=== PATIENT | female | born 1980 | race Caucasian/White ===

== ENCOUNTER 2016-10-04 21:34 | Emergency (ER) | payer BC ==
[~2016-10-04] VITALS: Ht 162.6 cm; Wt 81.6 kg
[~2016-10-04 21:34] MED LIST: LEVO175T2 PO
--- NOTE | 2016-10-04 21:35 | NUR ---
Patient to ER bed 6 to gown for evaluation. Side rails up. Report given to Pham CORONEL.
[2016-10-04 21:40] VITALS: BP 107/69; PULSE 77; RESP 18; TEMP 97.1; O2SAT 100
--- NOTE | 2016-10-04 21:48 | NUR ---
Patient to ER C/O spider bite. Patient states that she was getting dressend and got bit by a spider on upper inner right thigh. Patient states that she did not see the type of spider but immediately after had reddness and itchiness. Mild induration, errythema surrounding the area 2-3 cm. AAOx4, unlabored breathing, no signs of acute distress.
--- NOTE | 2016-10-04 22:03 | NUR ---
ER NIXON Villanueva at bedside for evaluation
[2016-10-04] MEDS ORDERED: IBUPROFEN 600 MG TABLET PO ONE (22:15)
[2016-10-04] MEDS ORDERED: DIPHENHYDRAMINE HCL 50 MG CAPSULE PO ONE (22:15)
[2016-10-04] MEDS ORDERED: BACITRACIN 1 GM OINT TP ONE (22:15)
--- NOTE | 2016-10-04 22:17 | NUR ---
ER MD Ruiz at bedside discussing plan of care with patient
[2016-10-04 22:39] VITALS: BP 116/72; PULSE 74; RESP 17; TEMP 98; O2SAT 99
--- NOTE | 2016-10-04 22:39 | NUR ---
Patient given written and verbal discharge instructions and verbalizes understanding. ER DIRECTOR OF [employer]NER MARKETING Kay discussed with patient the results and treatment provided. Patient in stable condition. ID arm band removed. Rx of benadryl & motrin given. Patient educated on pain management and to follow up with PMD. Pain Scale 0/10. Opportunity for questions provided and answered.
== END 2016-10-04 22:39 | disposition home or self-care (01) ==
LOC: SED 21:34
DX: S70.361A Insect bite (nonvenomous), right thigh, initial encounter (principal); E11.8 Type 2 diabetes mellitus with unspecified complications; W57.XXXA Bitten or stung by nonvenomous insect and other nonvenomous arthropods, initial encounter; Y93.89 Activity, other specified; Y99.8 Other external cause status; Y92.89 Other specified places as the place of occurrence of the external cause
CPT/HCPCS: 99284; Q0163

== ENCOUNTER 2018-03-21 11:17 | Inpatient (IN) | payer BC ==
[~2018-03-21] VITALS: Ht 162.6 cm; Wt 76.7 kg
--- NOTE | 2018-03-21 11:30 | NUR ---
Pt placed in bed 7
[2018-03-21 11:36] VITALS: BP_SYST 102
--- NOTE | 2018-03-21 12:02 | NUR ---
Dr. Mcclendon at bedside for evaluation
[2018-03-21] MEDS ORDERED: NACL 0.9% 1,000 ML IV ONE (12:05)
[2018-03-21] MEDS ORDERED: ONDANSETRON HCL 4 MG/2 ML VIAL IVP ONE ×2 (12:15→21:15)
--- NOTE | 2018-03-21 12:16 | NUR ---
Pt c/o body aches, dizziness, diarrhea, upper abd pain, nausea & weakness today. States that she had an ear ache and sore throat a few days ago. Denies fevers
--- NOTE | 2018-03-21 12:30 | NUR ---
Medicated per MD orders. IVF infusing with no s/s of infiltration at this time. Will cont to monitor. at bedside, bed in lowest position, side rails up. Lights turned off for comfort.
[2018-03-21 13:10] LABS: BASOPHILS # (AUTO) 0.1 K/uL (0.0-0.2); EOSINOPHILS # (AUTO) 0.1 K/uL (0.0-0.4); EOSINOPHILS % (AUTO) 0.4 % (0.0-4.0)
[2018-03-21 13:29] LABS: BASOPHILS % (AUTO) 0.4 % (0.0-2.0); HEMATOCRIT 48.3 % (36-48); HEMOGLOBIN 16.7 g/dL (12.0-16.0); LYMPHOCYTES # (AUTO) 1.6 K/uL (1.0-5.5); LYMPHOCYTES % (AUTO) 9.6 % (20.5-51.5); MEAN CORPUSCULAR HEMOGLOBIN 32 pg (27-31); MEAN CORPUSCULAR HGB CONC 35 % (32-36); MEAN CORPUSCULAR VOLUME 92 fL (79.0-98.0); MONOCYTES # (AUTO) 0.6 K/uL (0.0-1.0); MONOCYTES % (AUTO) 3.8 % (1.7-9.3); NEUTROPHILS # (AUTO) 14.7 K/uL (1.8-7.7); NEUTROPHILS % (AUTO) 85.8 % (40.0-70.0); PLATELET COUNT (AUTO) 322 K/uL (130-430); RED BLOOD CELL COUNT(AUTO) 5.28 MIL/uL (4.2-6.2); RED CELL DISTRIBUTION WIDTH 11.9 % (9.0-15.0); WHITE BLOOD COUNT (AUTO) 17.1 K/uL (4.8-10.8)
--- NOTE | 2018-03-21 13:30 | NUR ---
Pt resting on gurney, no signs of distress, will continue to monitor.
[2018-03-21 13:35] LABS: CALCIUM 9.1 mg/dL (8.4-11.0); CREATININE 0.84 mg/dL (0.55-1.30); POTASSIUM 3.3 mmol/L (3.5-5.1)
[2018-03-21 13:39] LABS: ALBUMIN 2.9 g/dL (3.4-4.8); TOTAL BILIRUBIN 0.3 mg/dL (0.0-1.0)
[2018-03-21 13:49] LABS: BILIRUBIN,URINE NEGATIVE (NEGATIVE); BLOOD, URINE NEGATIVE (NEGATIVE); CLARITY/URINE CLEAR (CLEAR); COLOR,URINE YELLOW (YELLOW); GLUCOSE,URINE NEGATIVE (NEGATIVE); KETONES,URINE 1+ (NEGATIVE); LEUKOCYTE ESTERASE ,URINE NEGATIVE (NEGATIVE); NITRITE, URINE NEGATIVE (NEGATIVE); PROTEIN URINE NEGATIVE (NEGATIVE); UROBILINOGEN,URINE 0.2 (0.2-1.0)
--- NOTE | 2018-03-21 14:35 | NUR ---
Dr. Mcclendon at bedside speaking to pt and family discussing lab and diagnostic results.
--- NOTE | 2018-03-21 15:31 | NUR ---
Pt moved to [facility].
--- NOTE | 2018-03-21 16:38 | NUR ---
Dr. Mcclendon at bedside speaking to pt discussing lab and diagnostic results.
--- NOTE | 2018-03-21 16:40 | NUR ---
Patient given written and verbal discharge instructions and verbalizes understanding. ER MD discussed with patient the results and treatment provided. Patient in stable condition. ID arm band removed. IV catheter removed intact and dressing applied, no active bleeding. Rx of Motrin & Augmentin given. Patient educated on pain management and to follow up with PMD. Pain Scale 0/10. Opportunity for questions provided and answered. Medication side effect fact sheet provided.
--- NOTE | 2018-03-21 17:15 | NUR ---
Pt contacted as requested by Dr. Mcclendon, pt asked to return to ER for further testing. Pt agreed and states that she will return to [facility] ER.
--- NOTE | 2018-03-21 18:10 | NUR ---
Pt returned to ER, placed in ER bed 2.
[2018-03-21] MEDS ORDERED: PIPERACILLIN/TAZO 3.38 GM in NS 50 ML IV ONE (18:30)
--- NOTE | 2018-03-21 18:30 | NUR ---
# 20 gauge angiocath placed to LAC. Use of asceptic technique. Opsite placed over site. Blood return noted. Blood for lab drawn from site. Flushed with 10 cc of normal saline. No evidence of infiltration noted. Patient tolerated well.
[2018-03-21] MEDS ORDERED: DIATR MEGLU/DIATRIZ SOD 30 ML SOLUTION PO ONE (18:33)
[2018-03-21] MEDS ORDERED: PIPERACILLIN/TAZOBACTAM 3.375 GM/VIAL (ZOSYN) IV ONE (18:37)
[2018-03-21 18:46] LABS: BASOPHILS # (AUTO) 0.1 K/uL (0.0-0.2); BASOPHILS % (AUTO) 0.7 % (0.0-2.0); EOSINOPHILS % (AUTO) 0.3 % (0.0-4.0); HEMATOCRIT 45.1 % (36-48); HEMOGLOBIN 15.2 g/dL (12.0-16.0); LYMPHOCYTES # (AUTO) 2.2 K/uL (1.0-5.5); LYMPHOCYTES % (AUTO) 20.7 % (20.5-51.5); MEAN CORPUSCULAR HEMOGLOBIN 30 pg (27-31); MEAN CORPUSCULAR HGB CONC 34 % (32-36); MEAN CORPUSCULAR VOLUME 90 fL (79.0-98.0); MONOCYTES # (AUTO) 0.4 K/uL (0.0-1.0); NEUTROPHILS % (AUTO) 74.3 % (40.0-70.0); PLATELET COUNT (AUTO) 337 K/uL (130-430); RED BLOOD CELL COUNT(AUTO) 5.02 MIL/uL (4.2-6.2); RED CELL DISTRIBUTION WIDTH 12.1 % (9.0-15.0); WHITE BLOOD COUNT (AUTO) 10.7 K/uL (4.8-10.8)
--- NOTE | 2018-03-21 18:50 | NUR ---
CT consent form signed. Dr. Mcclendon made aware of pt's allergy to walnuts and that pt takes Metformin.
[2018-03-21 19:02] LABS: CALCIUM 9.4 mg/dL (8.4-11.0); CREATININE 0.75 mg/dL (0.55-1.30); POTASSIUM 3.8 mmol/L (3.5-5.1)
[2018-03-21 19:07] LABS: ALBUMIN 3.2 g/dL (3.4-4.8); TOTAL BILIRUBIN 0.4 mg/dL (0.0-1.0)
--- NOTE | 2018-03-21 19:15 | NUR ---
Pt had signed for contrast. aware of CT with contrast. In bed. Pt level of 3/10 tolerable pain level.
[2018-03-21] MEDS ORDERED: IOHEXOL 100 ML IV ONE (20:06)
--- NOTE | 2018-03-21 20:15 | NUR ---
ER at bedside examining patient.
--- NOTE | 2018-03-21 20:18 | NUR ---
pt was taken to CT via wheel chair
--- NOTE | 2018-03-21 20:27 | NUR ---
Pt in bed 2.
--- NOTE | 2018-03-21 21:05 | NUR ---
Pt complained of nausea.
--- NOTE | 2018-03-21 21:48 | NUR ---
Medication reconciliation completed with information provided by -verbal from patient. Any prior medication reconciliation on file was reviewed and corrected.
[2018-03-21] MEDS ORDERED: INSULIN REGULAR, HUMAN 100 UNITS/ML, 10 ML VIAL (novoLIN R) SUBCUT PRN (22:00)
--- NOTE | 2018-03-21 22:30 | NUR ---
Patient will be admitted to care of Dr. Tavera. Admitted to Tele unit. was trafferrd to room 135. Belongings list completed. Summary report printed. Report was given at bedside to michelet CORONEL.
--- NOTE | 2018-03-21 22:32 | NUR ---
ADMISSION NOTE Received patient from ER via jaye, received report from HOMER rajan. Patient admitted with diagnosis of gastroparesis. Patient oriented to hospital routine, call light, toileting and safety-patient verbalized understanding.
[2018-03-21 22:37] VITALS: BP_SYST 118
[2018-03-21] MEDS ORDERED: GLU500 PO (22:48)
[2018-03-21] MEDS ORDERED: cefTRIAXone 1 GM in D5W 50 ML IV SCH (23:00)
--- NOTE | 2018-03-21 23:00 | NUR ---
Rec'd report from [facility]. Pt resting in bed awake, alert, oriented x4. Breathing unlabored and even on room air. at the bedside. No signs of distress, no needs at this time. Fall and safety precautions in place. Bed in lowest position, brake on, alarm on, call light within reach. Will continue to monitor and carry out orders.
[2018-03-21] MEDS ORDERED: cefTRIAXone 1 GM VIAL ONE (23:13)
[2018-03-21] MEDS: NACL 0.9% 1,000 ML IV SCH (23:14)
--- NOTE | 2018-03-21 23:29 | NUR ---
IV abx hung
--- NOTE | 2018-03-22 01:46 | NUR ---
Pt resting in bed awake, alert, oriented x4. Breathing unlabored and even on room air. at the bedside. No signs of distress, no needs at this time. Fall and safety precautions in place. IVF infusing as ordered. Bed in lowest position, brake on, alarm on, call light within reach. Will continue to monitor.
--- NOTE | 2018-03-22 03:54 | NUR ---
Pt resting in bed with eyes closed. Breathing unlabored and even on room air. at the bedside. No signs of distress, no needs at this time. Fall and safety precautions in place. IVF infusing as ordered. Bed in lowest position, brake on, alarm on, call light within reach. Will continue to monitor.
[2018-03-22] MEDS ORDERED: LEVOTHYROXINE SODIUM 0.125 MG TABLET PO SCH (06:00)
--- NOTE | 2018-03-22 06:20 | NUR ---
Blood sugar 178. Administered 2 units of regular insulin SQ as ordered
--- NOTE | 2018-03-22 07:20 | NUR ---
Opening Note: Patient laying in bed resting. Patient denies pain and discomfort. Patient denies nausea and vomiting. Breathing is even and unlabored with no distress noted. IV patent and intact running IV fluids per MD order. Safety precautions in place; bed in lowest position, wheels locked, side rails x3, bed alarm activated and call light within reach. Will continue to monitor.
--- NOTE | 2018-03-22 07:42 | NUR ---
CLOSING NOTE Gave report to Ping day shift nurse. Pt resting in bed awake, alert, oriented x4. Breathing unlabored and even on room air. No signs of distress, no needs at this time. All needs met throughout shift. Fall and safety precautions in place throughout shift. IVF infusing as ordered. Bed in lowest position, brake on, alarm on, call light within reach.
[2018-03-22 07:51] LABS: CALCIUM 8.4 mg/dL (8.4-11.0); CREATININE 0.89 mg/dL (0.55-1.30); POTASSIUM 3.7 mmol/L (3.5-5.1)
[2018-03-22] MEDS: NACL 0.9% 1,000 ML IV SCH ×2 (07:55→17:23)
--- NOTE | 2018-03-22 07:56 | NUR ---
Bed Alarm: Patient asked for bed alarm to be taken off, patient stated she feels more stable and feels weird about having a bed alarm. Patient asked to use call light to call for nurse when getting out of bed. Patient verbalized understanding.
[2018-03-22 08:01] VITALS: BP_SYST 95
[2018-03-22 08:01] LABS: BASOPHILS # (AUTO) 0.1 K/uL (0.0-0.2); BASOPHILS % (AUTO) 0.8 % (0.0-2.0); EOSINOPHILS # (AUTO) 0.2 K/uL (0.0-0.4); EOSINOPHILS % (AUTO) 2.3 % (0.0-4.0); HEMATOCRIT 36.2 % (36-48); HEMOGLOBIN 12.7 g/dL (12.0-16.0); LYMPHOCYTES # (AUTO) 2.4 K/uL (1.0-5.5); LYMPHOCYTES % (AUTO) 29.6 % (20.5-51.5); MEAN CORPUSCULAR HEMOGLOBIN 32 pg (27-31); MEAN CORPUSCULAR HGB CONC 35 % (32-36); MEAN CORPUSCULAR VOLUME 91 fL (79.0-98.0); MONOCYTES # (AUTO) 0.7 K/uL (0.0-1.0); MONOCYTES % (AUTO) 8.5 % (1.7-9.3); NEUTROPHILS # (AUTO) 4.7 K/uL (1.8-7.7); NEUTROPHILS % (AUTO) 58.8 % (40.0-70.0); PLATELET COUNT (AUTO) 277 K/uL (130-430); RED CELL DISTRIBUTION WIDTH 12.2 % (9.0-15.0); WHITE BLOOD COUNT (AUTO) 8.1 K/uL (4.8-10.8)
[2018-03-22] MEDS ORDERED: DOCUSATE SODIUM 100 MG CAPSULE PO PRN (09:15)
[2018-03-22] MEDS ORDERED: MAGNESIUM SULFATE 50 ML IV PRN (09:15)
[2018-03-22] MEDS ORDERED: ZOLPIDEM TARTRATE 5 MG TABLET PO PRN (09:15)
[2018-03-22] MEDS ORDERED: LORazepam 2 MG/ML VIAL IVP PRN (09:15)
[2018-03-22] MEDS ORDERED: MUPIROCIN 2% TOPICAL OINTMENT 22 GM NS PRN (09:15)
[2018-03-22] MEDS ORDERED: ONDANSETRON HCL 4 MG/2 ML VIAL IVP PRN (09:15)
[2018-03-22] MEDS ORDERED: POTASSIUM CHLORIDE 20 MEQ TAB.PRT.SR PO PRN (09:15)
[2018-03-22] MEDS ORDERED: ACETAMINOPHEN 325 MG TABLET PO PRN (09:15)
[2018-03-22] MEDS ORDERED: MORPHINE 2 MG/ML INJ. SYRINGE IVP PRN ×2 (09:15)
--- NOTE | 2018-03-22 09:17 | NUR ---
Nutrition Update Robby Scale 18 noted. Pt admitted for gastroparesis. Diet: [facility] BMI: 29 kg/m2 RD to follow per nutrition care standards.
[2018-03-22] MEDS ORDERED: metFORMIN HCL 500 MG TABLET PO ONE (09:30)
[2018-03-22] MEDS ORDERED: METOCLOPRAMIDE HCL 10 MG/2 ML VIAL IVP PRN (09:30)
[2018-03-22] MEDS ORDERED: DEXTROSE 50% JECT 50 ML DISP.SYRIN IVP PRN (09:30)
--- NOTE | 2018-03-22 09:55 | NUR ---
Rounding: Patient laying in bed resting, no distress noted. Will continue to monitor.
[2018-03-22 09:58] LABS: INR 0.9 (0.8-1.2); PROTHROMBIN TIME 9.4 SECS (9.5-12.5)
[2018-03-22 10:11] LABS: BARBITURATE, URINE NEGATIVE (NEG <=200); BENZODIAZEPINE, URINE NEGATIVE (NEG <=150); CANNABINOID, URINE NEGATIVE (NEG <=50); COCAINE, URINE NEGATIVE (NEG <=150); METHAMPHETAMINES SCREEN,URINE NEGATIVE (NEG <=500); OPIATE, URINE NEGATIVE (NEG <=100); PHENCYCLIDINE SCREEN,URINE NEGATIVE (NEG <=25); UR TRICYCLIC ANTIDEPRESSANTS NEGATIVE (NEG <=300); URINE AMPHETAMINE NEGATIVE (NEG <=500); URINE METHADONE NEGATIVE (NEG <=200); URINE OXYCODONE SCREEN NEGATIVE (NEG <=100); URINE PROPOXYPHENE SCREEN NEGATIVE (NEG <=300)
[2018-03-22 10:13] LABS: HCG,QUAL RESULT NEGATIVE (NEGATIVE)
[2018-03-22] MEDS ORDERED: LACTOBACILLUS RHAMNOSUS GG 1 CAP CAPSULE PO ONE (10:15)
[2018-03-22 10:40] LABS: FREE T4 (FREE THYROXINE) 1.2 ng/dL (0.6-1.6); THYROID STIMULATING HORMONE 0.16 uIu/mL (0.34-4.82)
--- NOTE | 2018-03-22 10:45 | NUR ---
Blood sugar: Accu check done and blood sugar was 193. Patient refused insulin coverage because she stated "I just finished eating, that's why my blood sugar is high."
[2018-03-22] MEDS: INSULIN ASPART 100 UNITS/ML, 10 ML VIAL (NovoLOG) SUBCUT PRN ×2 (11:49→21:11)
[2018-03-22 12:00] VITALS: BP_SYST 92
--- NOTE | 2018-03-22 12:15 | NUR ---
Rounding: Patient laying in bed resting. Patient denies pain and discomfort. Breathing is even and unlabored with no distress noted. Morning mediations tolerated well. No current needs. Safety precautions in place. Will continue to monitor.
--- NOTE | 2018-03-22 13:13 | NUR ---
CONSULTATION PAGED/CALLED Reason for Consultation: [] FREE FLUID IN PELVIS Person Who was Notified: [] SERGIO Consulting Physician: [] DR Patrice GONZALEZ [employer] Installer Specialty: [] OBGYN Ordering Physician: [] DR Karmen PONCE
[2018-03-22] MEDS: metroNIDAZOLE 500 mg/NS 100 ML IV SCH ×2 (13:40→21:48)
--- NOTE | 2018-03-22 14:02 | NUR ---
Rounding: Patient sitting in bed resting, eating lunch. Patient denies pain and discomfort. No current needs. Will continue to monitor.
--- NOTE | 2018-03-22 16:04 | NUR ---
Rounding: Patient laying in bed resting, at bedside. Patient denies pain and discomfort. Breathing is even and unlabored with no distress noted. No current needs. Safety precautions in place. Will continue to monitor.
[2018-03-22 16:05] VITALS: BP_SYST 103
[2018-03-22] MEDS ORDERED: COMMUNICATION ORDER XX ONE (17:00)
[2018-03-22] MEDS ORDERED: metFORMIN HCL 500 MG TABLET PO SCH (18:00)
--- NOTE | 2018-03-22 18:39 | NUR ---
Closing Note: Patient laying in bed resting. Patient denies pain and discomfort. Patient denies nausea, vomiting and diarrhea. Breathing is even and unlabored with no distress noted. Patient denies dizziness. IV patent and intact running IV fluids per MD order. SCD's in place. Safety precautions in place; bed in lowest position, wheels locked, side rails x3 and call light within reach. All needs met. Will endorse plan of care to NOC, nurse.
--- NOTE | 2018-03-22 19:15 | NUR ---
OPENING NOTE Rec'd report from Ping day shift nurse. Pt resting in bed awake, alert, oriented x4. Family at the bedside. Breathing unlabored and even. No signs of distress, no needs at this time. Fall and safety precautions in place. Bed in lowest position, brake on, call light within reach. Bed alarm refused. Encouraged call for assist. IVF infusing as ordered. Will continue to monitor.
[2018-03-22 20:16] VITALS: BP_SYST 100
[2018-03-22] MEDS ORDERED: cefTRIAXone 1 GM in D5W 50 ML IV SCH (21:00)
--- NOTE | 2018-03-22 21:13 | NUR ---
Med pass. Blood sugar 225, Administered 4 units of insulin aspart per sliding scale.
--- NOTE | 2018-03-22 21:51 | NUR ---
IV abx hung
--- NOTE | 2018-03-22 21:59 | NUR ---
Pt c/o nausea. Administered PRN zofran 4mg IVP as ordered
--- NOTE | 2018-03-22 23:30 | NUR ---
Pt resting in bed awake, alert, oriented x4. at the bedside. Breathing unlabored and even. No signs of distress, no needs at this time. Fall and safety precautions in place. Bed in lowest position, brake on, call light within reach. IVF infusing as ordered. Will continue to monitor.
--- NOTE | 2018-03-22 23:39 | NUR ---
Vital signs take. Stable.
[2018-03-23 00:38] VITALS: BP_SYST 96
--- NOTE | 2018-03-23 01:40 | NUR ---
Pt resting in bed with eyes closed. at the bedside. Breathing unlabored and even. No signs of distress, no needs at this time. Fall and safety precautions in place. Bed in lowest position, brake on, call light within reach. IVF infusing as ordered. Will continue to monitor.
[2018-03-23 05:06] LABS: T4 (THYROXINE) 14.1 ug/dL (4.5-12.0)
[2018-03-23] MEDS: metroNIDAZOLE 500 mg/NS 100 ML IV SCH (06:08)
[2018-03-23] MEDS: INSULIN ASPART 100 UNITS/ML, 10 ML VIAL (NovoLOG) SUBCUT PRN (06:16)
--- NOTE | 2018-03-23 06:18 | NUR ---
IV abx hung. Blood sugar 178. Pt refused insulin coverage, despite education
--- NOTE | 2018-03-23 07:27 | NUR ---
CLOSING NOTE Gave report to HOMER Taylor. Pt resting in bed awake, alert, oriented x4. at the bedside. Breathing unlabored and even. No signs of distress, no needs at this time. All needs met throughout shift. Fall and safety precautions in place throughout shift. Bed in lowest position, brake on, call light within reach. IVF infusing as ordered.
[2018-03-23 08:00] VITALS: BP_SYST 100
--- NOTE | 2018-03-23 08:00 | NUR ---
Opening Note Report received from [facility] shift nurse. Patient is currently resting in bed. IV is on the LAC 20g running NS@100. No signs of distress noted at the moment. No complaints of abdominal pain at the moment. Call light is within reach and bed is in low position.
[2018-03-23 08:29] LABS: BASOPHILS % (AUTO) 0.6 % (0.0-2.0); EOSINOPHILS # (AUTO) 0.2 K/uL (0.0-0.4); EOSINOPHILS % (AUTO) 2.7 % (0.0-4.0); HEMATOCRIT 35.1 % (36-48); HEMOGLOBIN 12.3 g/dL (12.0-16.0); LYMPHOCYTES # (AUTO) 2.1 K/uL (1.0-5.5); LYMPHOCYTES % (AUTO) 26.6 % (20.5-51.5); MEAN CORPUSCULAR HEMOGLOBIN 32 pg (27-31); MEAN CORPUSCULAR HGB CONC 35 % (32-36); MEAN CORPUSCULAR VOLUME 91 fL (79.0-98.0); MONOCYTES # (AUTO) 0.5 K/uL (0.0-1.0); MONOCYTES % (AUTO) 5.9 % (1.7-9.3); NEUTROPHILS # (AUTO) 5.2 K/uL (1.8-7.7); NEUTROPHILS % (AUTO) 64.2 % (40.0-70.0); PLATELET COUNT (AUTO) 246 K/uL (130-430); RED BLOOD CELL COUNT(AUTO) 3.87 MIL/uL (4.2-6.2); RED CELL DISTRIBUTION WIDTH 11.8 % (9.0-15.0)
[2018-03-23 08:34] LABS: CALCIUM 8.1 mg/dL (8.4-11.0); CREATININE 0.78 mg/dL (0.55-1.30); POTASSIUM 3.8 mmol/L (3.5-5.1)
[2018-03-23] MEDS ORDERED: LACTOBACILLUS RHAMNOSUS GG 1 CAP CAPSULE PO SCH (09:00)
[2018-03-23 09:01] LABS: HEMOGLOBIN A1C 9.7 % (4.8-5.6)
--- NOTE | 2018-03-23 10:00 | NUR ---
Rounds Patient is currently resting in bed. No signs of distress noted at the moment.
[2018-03-23] MEDS ORDERED: DIPHENOXYLATE HCL/ATROP SULF 2.5 MG TAB PO ONE (10:45)
[2018-03-23] MEDS ORDERED: LOPE2CAP PO (10:50)
[2018-03-23] MEDS ORDERED: ONDA4TAB5 PO (10:50)
[2018-03-23] MEDS ORDERED: OFLOXACIN 0.3%, 5 ML EAR DROPS OT ONE (11:00)
[2018-03-23] MEDS ORDERED: FLOEARD OP (11:52)
--- NOTE | 2018-03-23 12:30 | NUR ---
Rounds Dr. Carrasco rounded on the patient MD stated that it is ok for the patient to be dc'd home.
[2018-03-23 12:53] VITALS: BP_SYST 100
[2018-03-23 13:16] VITALS: BP_SYST 112
--- NOTE | 2018-03-23 13:23 | NUR ---
Transition of Care Note All transition instructions were handed to the patient. She verbalized understanding of all. IV and ID band were both removed. Patient left the unit in stable condition.
== END 2018-03-23 13:20 | disposition home or self-care (01) | DRG 74 ==
LOC: SED 11:17 → STU 21:47
PROVIDERS: ADMIT Family Medicine; ATTEND Family Medicine
DX: E11.43 Type 2 diabetes mellitus with diabetic autonomic (poly)neuropathy (principal); N39.0 Urinary tract infection, site not specified; J06.9 Acute upper respiratory infection, unspecified; E86.0 Dehydration; E03.9 Hypothyroidism, unspecified; E78.5 Hyperlipidemia, unspecified; K52.9 Noninfective gastroenteritis and colitis, unspecified; E11.65 Type 2 diabetes mellitus with hyperglycemia; K31.84 Gastroparesis; N20.0 Calculus of kidney; H60.93 Unspecified otitis externa, bilateral; Z91.018 Allergy to other foods; Z79.899 Other long term (current) drug therapy; Z90.710 Acquired absence of both cervix and uterus; Z87.11 Personal history of peptic ulcer disease
CPT/HCPCS: 36415; 70450-TC; 71045; 76830-TC; 76857; 80048; 80053; 80061; 80307; 81003; 82962; 83036; 83605; 83690-TC; 83735-TC; 83880; 84100-TC; 84436; 84439; 84443-TC; 84479; 84480; 84703; 85025; 85610-TC; 85730-TC; 87040-TC; 93880; 96361; 96365; 96375; 99285; J0696; J2270; J2405; J2543; J3490; J7030; J7060; Q9964; Q9967